=== PATIENT | male | born 1970 | race Caucasian/White ===

== ENCOUNTER 2019-08-21 08:03 | Emergency (ER) | payer SELFPAY ==
[2019-08-21 08:08] VITALS: BP 163/97; PULSE 118; RESP 18; TEMP 37; O2SAT 94; BMI 37.2
[2019-08-21 08:16] VITALS: BP 163/97; O2SAT 96
[2019-08-21 08:30] VITALS: BP 120/93; O2SAT 93
--- NOTE | 2019-08-21 08:40 | ED_ITS ---
HPI - Skin/Abscess/Foreign Bdy General: Chief complaint: Skin/Abscess/Foreign Body Stated complaint: possible infection Time Seen by Provider: 08/21/19 08:08 History of Present Illness: HPI narrative: Patient's had an abscess on his right buttockFor 4 to 5 days it opened up and drained this morning had a large puddle of brownish discharge on the floor. Says is painful. He said on a stick in a chair it did not go through his jechris zhang MD complaint: abscess/boil Onset (ago): day(s) Tetanus up to date: unsure Location: buttocks Severity: moderate Severity scale (1-10): 6 Quality: aching Pain Consistency: constant Relieving factors: other (When it opened up and drained) Exacerbating factors: other (Sitting on it) Associated symptoms: Deny chills, fever(s), nausea or vomiting Review of Systems Const: Denies: fever(s), chills or body aches Eyes: Denies: change in vision or blurry vision ENMT: Denies: throat pain or nasal congestion Card: Denies: chest pain or dyspnea on exertion Resp: Denies: dyspnea, productive cough or non-productive cough GI: Denies: abdominal pain, nausea or vomiting : Denies: difficulty urinating Musc: Denies: extremity pain Skin/Breast: Reports: skin swelling; Denies: rash Neuro: Denies: headache(s) Psych: Denies: anxiety or depression Oleksandr/Lymph: Denies: easy bruising PFSH ED PFSH: Social History Smoking and tobacco status: current every day smoker Physical Exam Const: COMMON NORMALS: no acute distress, average body habitus and patient oriented x3 HENMT: COMMON NORMALS: normocephalic HEAD & SCALP: normal to inspection and normocephalic FACE & SINUS: normal facial exam Eye: COMMON NORMALS: conjunctivae normal GENERAL EYE: appearance normal, both eyes and all related structures CONJUNCTIVA: Yes conjunctivae normal Neck/C-Spine: COMMON NORMALS: no JVD Chest: COMMONS NORMALS: normal inspection of the chest Resp: COMMON NORMALS: normal respiratory effort and clear to auscultation bilaterally AUSCULTATION: clear to auscultation bilaterally Cardio: COMMON NORMALS: no JVD, regular rate and regular rhythm RATE: regular rate RHYTHM: regular rhythm GI: COMMON NORMALS: Normal to inspection, nondistended, normoactive bowel sounds present Extremity: COMMON NORMALS: normal to inspection and full ROM Neuro: COMMON NORMALS: patient oriented x3 Skin: GENERAL SKIN EXAM: other (Has an abscess has open draining his right buttock near his anus foul-smelling discharge brownish tender with erythema is extending up his buttock on the right side about 2 inches) Procedures Abscess I/D Site: other (Right buttock) Side (if applicable): right Local Anesthetic: lidocaine 1% Amount of anesthesia used (mL): 2 Irrigation: Yes Packing used?: iodoform Course Vital Signs: Vital signs: Vital Signs Temperature 98.6 F 08/21/19 08:08 Pulse Rate 118 H 08/21/19 08:08 Respiratory Rate 18 08/21/19 08:08 Blood Pressure 163/97 08/21/19 08:16 Pulse Oximetry 96 08/21/19 08:16 Discharge Plan Discharge Patient Disposition: Home, Self-Care Clinical Impression: Abscess of skin or subcutaneous tissue Qualifiers: Site of cutaneous abscess: buttock Qualified Code(s): L02.31 - Cutaneous abscess of buttock Condition: Stable Prescriptions: New Augmentin 875-125 mg tablet 1 tab PO BID Qty: 20 RF: 0 tramadol 50 mg tablet 50 mg PO Q6H PRN (Reason: pain) Qty: 14 RF: 0 Discharge Diet: Usual diet Discharge Activity: Resume usual activity Patient Instructions: Abscess Incision and Drainage (ED) Activity Restrictions/Additional Instructions: Follow-up with medical provider as directed. Take medications as prescribed. Return to the ER or your medical provider if condition worsens. Please read and understand discharge instructions. If any questions ask please. Remove packing on Friday Coding Level of Care Code ED [employer] for Forrest Damian
--- NOTE | 2019-08-21 08:41 | PC.NURSE ---
While assisting ED PADDING GLUER Mckenna with abscess drainage, patient stated the abscess had came up 3 days ago and that the abscess had opened and drained this morning
== END 2019-08-21 08:56 | disposition home or self-care (01) ==
PROVIDERS: Emergency Provider Nurse Practitioner Family
DX: L02.31 Cutaneous abscess of buttock (principal); F17.210 Nicotine dependence, cigarettes, uncomplicated
CPT/HCPCS: 10060; 12345; 87070; 99282; 99283

== ENCOUNTER → 2019-11-22 09:40 | Outpatient (BNVA) | payer SELFPAY | PROVIDERS: Visit Provider Registered Nurse | DX: R73.9 Hyperglycemia, unspecified (principal) | CPT/HCPCS: 36416; 80053; 80061; 81000; 82962; 83036; 83721; 85025 ==

== ENCOUNTER → 2019-12-06 09:28 | Outpatient (BNVA) | payer SELFPAY | PROVIDERS: Visit Provider Registered Nurse | DX: E11.9 Type 2 diabetes mellitus without complications (principal); I10 Essential (primary) hypertension | CPT/HCPCS: 36416; 82962 ==

== ENCOUNTER → 2021-08-07 10:09 | Outpatient (BNVA) | payer OTHER, SELFPAY | PROVIDERS: Visit Provider Surgery | DX: Z12.11 Encounter for screening for malignant neoplasm of colon (principal); F17.210 Nicotine dependence, cigarettes, uncomplicated | CPT/HCPCS: 99203 ==